=== PATIENT | male | born 1975 | race Caucasian/White ===

== ENCOUNTER 2022-02-17 17:20 | Emergency (ER) | payer MEDICAID ==
[~2022-02-17] VITALS: Ht 170.2 cm; Wt 92.3 kg
[2022-02-17 17:27] VITALS: BP 124/75
--- NOTE | 2022-02-17 17:36 | NUR ---
PT AMB TO BED 12.
--- NOTE | 2022-02-17 17:42 | NUR ---
SWABS FOR ANN, INFLUENZA A&B SENT TO LAB
[2022-02-17] MEDS ORDERED: ACETAMINOPHEN EXTRA STRENGTH 500 MG TAB PO ONE (17:45)
--- NOTE | 2022-02-17 17:46 | NUR ---
COVID AND FLU SWAB COLLECTED AND SENT TO LAB. EKG DONE AT BEDSIDE
--- NOTE | 2022-02-17 17:47 | NUR ---
46/M WALKED IN C/O HEADACHE ACCOMPANIED BY COUGH AND NAUSEA ONSET 3 DAYS. PT ALSO C/O CHEST PAIN ONSET YESTERDAY. DENIES DIZZINESS. AFEBRILE. DENIES ANY KNOWN EXPOSURE TO SICK PEOPLE. ON ROOM AIR, NO ACUTE DISTRESS NOTED. PMH: DENIES
--- NOTE | 2022-02-17 17:49 | NUR ---
URINE COLLECTED AND SENT TO LAB
--- NOTE | 2022-02-17 18:00 | NUR ---
XR AT BEDSIDE
[2022-02-17 18:30] LABS: APPEARANCE,URINE CLEAR (CLEAR); BILIRUBIN,URINE NEGATIVE (NEGATIVE); BLOOD, URINE NEGATIVE (NEGATIVE); COLOR,URINE YELLOW (YELLOW); LEUKOCYTE ESTERASE ,URINE NEGATIVE (NEGATIVE); NITRITE, URINE NEGATIVE (NEGATIVE); UGLUCOSE NEGATIVE (NEGATIVE)
[2022-02-17] MEDS ORDERED: NACL 0.9% 1,000 ML IV ONE (18:30)
[2022-02-17] MEDS ORDERED: KETOROLAC 15 MG/ML VIAL IVP ONE (18:30)
--- NOTE | 2022-02-17 18:40 | NUR ---
PT WENT FOR CT
[2022-02-17 18:48] LABS: BASOPHILS # (AUTO) 0.1 K/uL (0.00-0.22); BASOPHILS % (AUTO) 0.7 % (0.0-2.0); EOSINOPHILS # (AUTO) 0.1 K/uL (0-0.4); EOSINOPHILS % (AUTO) 1.5 % (0.0-4.0); HEMATOCRIT 41.2 % (36-52); HEMOGLOBIN 13.8 g/dL (12.0-18.0); LYMPHOCYTES # (AUTO) 2.6 K/uL (2.0-11.5); LYMPHOCYTES % (AUTO) 28.6 % (20.5-51.1); MEAN CORPUSCULAR HEMOGLOBIN 29 pg (27-31); MEAN CORPUSCULAR HGB CONC 33 g/dL (33-37); MEAN CORPUSCULAR VOLUME 87.8 fL (80-94); MONOCYTES # (AUTO) 0.6 K/uL (0.8-1.0); NEUTROPHILS # (AUTO) 5.6 K/uL (1.8-7.7); NEUTROPHILS % (AUTO) 62.2 % (42.2-75.2); PLATELET COUNT (AUTO) 192 K/uL (140-450); RED BLOOD CELL COUNT(AUTO) 4.69 MIL/uL (4.20-6.10); RED CELL DISTRIBUTION WIDTH 13.6 % (11.6-13.7)
[2022-02-17 19:20] LABS: ANION GAP 7.9 (8-16); CARBON DIOXIDE 30.9 mmol/L (21-32); CREATININE 0.9 mg/dL (0.6-1.3); POTASSIUM 3.8 mmol/L (3.5-5.1)
--- NOTE | 2022-02-17 19:38 | NUR ---
HANDOFF REPORT GIVEN TO RAMILA GILBERT.
--- NOTE | 2022-02-17 20:07 | NUR ---
YENI AMBULATED TO RR WITH STEADY GAIT
[2022-02-17] MEDS ORDERED: DOXY-690 PO (21:11)
[2022-02-17] MEDS ORDERED: DOXYCYCLINE 100 MG CAP PO STA (21:31)
[2022-02-17 22:23] VITALS: BP 107/68
--- NOTE | 2022-02-17 22:25 | NUR ---
Patient discharged with v/s stable. Written and verbal after care instructions given and explained. Patient alert, oriented and verbalized understanding of instructions. Ambulatory with steady gait. All questions addressed prior to discharge. ID band removed. Patient advised to follow up with PMD. Rx of antibiotic given for 10 days. Patient educated on indication of medication including possible reaction and side effects. Opportunity to ask questions provided and answered.
== END 2022-02-17 21:29 | disposition home or self-care (01) ==
LOC: MED 17:20
DX: J18.9 Pneumonia, unspecified organism (principal); Z20.822 Contact with and (suspected) exposure to COVID-19
CPT/HCPCS: 36415; 70450; 71045; 80048; 81003; 84484; 85025; 87426; 87804; 93005; 96374; 99285; J1885; J7030; Q0092

== ENCOUNTER 2022-05-29 07:01 | Emergency (ER) | payer MEDICAID ==
[~2022-05-29] VITALS: Ht 170.2 cm; Wt 90.7 kg
[~2022-05-29 07:01] MED LIST: DOXY-690 PO
[2022-05-29 07:16] VITALS: BP 98/60
[2022-05-29] MEDS ORDERED: KETOROLAC 30 MG/ML VIAL IM ONE (07:35)
[2022-05-29 08:24] LABS: APPEARANCE,URINE CLEAR (CLEAR); BILIRUBIN,URINE NEGATIVE (NEGATIVE); BLOOD, URINE NEGATIVE (NEGATIVE); COLOR,URINE YELLOW (YELLOW); LEUKOCYTE ESTERASE ,URINE NEGATIVE (NEGATIVE); NITRITE, URINE NEGATIVE (NEGATIVE); UGLUCOSE NEGATIVE (NEGATIVE)
--- NOTE | 2022-05-29 08:36 | NUR ---
PATIENT AMBULATED TO BED 7.
--- NOTE | 2022-05-29 08:39 | NUR ---
LAB AT BEDSIDE.
[2022-05-29 08:50] LABS: BASOPHILS # (AUTO) 0.1 K/uL (0.00-0.22); BASOPHILS % (AUTO) 0.7 % (0.0-2.0); EOSINOPHILS # (AUTO) 0.1 K/uL (0-0.4); HEMATOCRIT 45.6 % (36-52); HEMOGLOBIN 15.2 g/dL (12.0-18.0); LYMPHOCYTES # (AUTO) 1.9 K/uL (2.0-11.5); LYMPHOCYTES % (AUTO) 24.4 % (20.5-51.1); MEAN CORPUSCULAR HEMOGLOBIN 29 pg (27-31); MEAN CORPUSCULAR HGB CONC 33 g/dL (33-37); MEAN CORPUSCULAR VOLUME 87.8 fL (80-94); MONOCYTES # (AUTO) 0.4 K/uL (0.8-1.0); MONOCYTES % (AUTO) 5.6 % (1.7-9.3); NEUTROPHILS # (AUTO) 5.2 K/uL (1.8-7.7); NEUTROPHILS % (AUTO) 68.3 % (42.2-75.2); PLATELET COUNT (AUTO) 205 K/uL (140-450); RED CELL DISTRIBUTION WIDTH 13.4 % (11.6-13.7); WHITE BLOOD COUNT (AUTO) 7.6 K/uL (4.8-10.8)
[2022-05-29 09:12] LABS: ALBUMIN 3.6 g/dL (3.4-5.0); ANION GAP 6.8 (8-16); CARBON DIOXIDE 32.8 mmol/L (21-32); CREATININE 0.9 mg/dL (0.6-1.3); POTASSIUM 4.6 mmol/L (3.5-5.1); TOTAL BILIRUBIN 0.2 mg/dL (0.0-1.0)
[2022-05-29 09:18] LABS: LIPASE 172 U/L (73-393)
[2022-05-29] MEDS ORDERED: FAMO-90 PO (09:44)
[2022-05-29] MEDS ORDERED: MAG355OR2 PO (09:44)
[2022-05-29 10:04] VITALS: BP 111/63
--- NOTE | 2022-05-29 10:04 | NUR ---
Patient discharged with v/s stable. Written and verbal after care instructions given. Patient alert, oriented and verbalized understanding of instructions. Ambulatory with steady gait. All questions addressed prior to discharge. ID band removed. Patient advised to follow up with PMD. Rx of Pepcid and Maalox Maximum Strength Susp given. Opportunity to ask questions provided and answered. WORK NOTE HANDED TO PATIENT.
--- NOTE | 2022-05-29 10:11 | NUR ---
The patient's care was reviewed and supervised by ED Agency Nurse 9, RN, RN.
== END 2022-05-29 10:04 | disposition home or self-care (01) ==
LOC: MED 07:01
DX: K76.0 Fatty (change of) liver, not elsewhere classified (principal); R10.32 Left lower quadrant pain
CPT/HCPCS: 36415; 74176; 80053; 81003; 83690; 84484; 85025; 87491; 93005; 96372; 99285; J1885

== ENCOUNTER 2022-06-29 15:06 | Emergency (ER) | payer MEDICAID ==
[~2022-06-29] VITALS: Ht 165.1 cm; Wt 93.9 kg
[~2022-06-29 15:06] MED LIST changes: +FAMO-90 PO; +MAG355OR2 PO
[2022-06-29 15:19] VITALS: BP 102/60
--- NOTE | 2022-06-29 15:26 | NUR ---
PT AMB TO BED 5
[2022-06-29] MEDS ORDERED: ONDANSETRON 4 MG ODT PO ONE (16:05)
[2022-06-29 16:06] LABS: BASOPHILS # (AUTO) 0.1 K/uL (0.00-0.22); BASOPHILS % (AUTO) 1.2 % (0.0-2.0); EOSINOPHILS # (AUTO) 0.1 K/uL (0-0.4); EOSINOPHILS % (AUTO) 0.9 % (0.0-4.0); HEMATOCRIT 41.7 % (36-52); LYMPHOCYTES # (AUTO) 2.3 K/uL (2.0-11.5); LYMPHOCYTES % (AUTO) 30.3 % (20.5-51.1); MEAN CORPUSCULAR HEMOGLOBIN 29 pg (27-31); MEAN CORPUSCULAR HGB CONC 34 g/dL (33-37); MEAN CORPUSCULAR VOLUME 87.9 fL (80-94); MONOCYTES # (AUTO) 0.7 K/uL (0.8-1.0); MONOCYTES % (AUTO) 8.8 % (1.7-9.3); NEUTROPHILS # (AUTO) 4.4 K/uL (1.8-7.7); NEUTROPHILS % (AUTO) 58.8 % (42.2-75.2); PLATELET COUNT (AUTO) 195 K/uL (140-450); RED BLOOD CELL COUNT(AUTO) 4.74 MIL/uL (4.20-6.10); RED CELL DISTRIBUTION WIDTH 13.3 % (11.6-13.7); WHITE BLOOD COUNT (AUTO) 7.5 K/uL (4.8-10.8)
[2022-06-29 16:28] LABS: ALBUMIN 3.4 g/dL (3.4-5.0); ANION GAP 7.9 (8-16); ASPARTATE AMINOTRANSFERASE 27 U/L (15-37); CHLORIDE 101 mmol/L (98-107); GFR ARICAN-AMERICAN 104 mL/min (>90); GLUCOSE 128 mg/dL (74-106); POTASSIUM 3.9 mmol/L (3.5-5.1); SODIUM SERUM 135 mmol/L (136-145); TOTAL BILIRUBIN 0.2 mg/dL (0.0-1.0); UREA NITROGEN, BLOOD 16 mg/dL (7-18)
[2022-06-29] MEDS ORDERED: ALUMINUM HYD/MAG/SIMETHICONE 30 ML UDC PO ONE (16:40)
[2022-06-29] MEDS ORDERED: FAMOTIDINE 20 MG TAB PO ONE (16:40)
[2022-06-29] MEDS ORDERED: SUCR1TAB35 PO (16:45)
[2022-06-29] MEDS ORDERED: OMEP40EC23 PO (16:45)
[2022-06-29 17:08] VITALS: BP 111/60
--- NOTE | 2022-06-29 17:08 | NUR ---
Patient discharged with v/s stable. Written and verbal after care instructions FOR NAUSEA AND ABD PAIN given and explained. Patient alert, oriented and verbalized understanding of instructions. Ambulatory with steady gait. All questions addressed prior to discharge. ID band removed. Patient advised to follow up with PMD. Rx of OMEPRAZOLE AND SUCRALFATE given. Opportunity to ask questions provided and answered.
== END 2022-06-29 17:08 | disposition home or self-care (01) ==
LOC: MED 15:06
DX: R10.13 Epigastric pain (principal); R11.0 Nausea; E11.9 Type 2 diabetes mellitus without complications; Z79.4 Long term (current) use of insulin; Z79.899 Other long term (current) drug therapy; Z79.2 Long term (current) use of antibiotics
CPT/HCPCS: 36415; 71045; 80053; 83690; 84484; 85025; 93005; 99285; Q0162